=== PATIENT | female | born 1985 | race American Indian/Alaskan Native ===

== ENCOUNTER 2018-07-01 00:20 | Emergency (ER) | payer SELFPAY ==
[2018-07-01 00:42] VITALS: RESP 20
[2018-07-01 01:59] LABS: SQUAMOUS EPITHIAL < 1 /hpf (0-5); URINE BILIRUBIN NEGATIVE (NEGATIVE); URINE BLOOD NEGATIVE (NEGATIVE); URINE CLARITY Clear (Clear); URINE COLOR Yellow (YELLOW); URINE GLUCOSE (UA) NORMAL (Normal); URINE LEUKOCYTE ESTERASE NEG Leu/uL (Negative); URINE PROTEIN NEGATIVE (NEGATIVE); URINE UROBILINOGEN NORMAL mg/dL (0.2-1.0)
--- NOTE | 2018-07-01 02:51 | C.PDOC ---
History Of Present Illness 32 year old female presents to the ED for evaluation of irregular menses which has been ongoing since March 2018. Patient states her menses usually lasts two days, then reoccurs after three days. Patient started bleeding five days ago, but states her flow has been heavier than usual. She notes her bleeding has improved today, but would still like to be evaluated. Patient is also complaining of suprapubic abdominal discomfort. She denies fever, chills, back pain, dysuria. Time Seen by Provider: 07/01/18 01:16 Chief Complaint (Nursing): Female Genitourinary History Per: Patient History/Exam Limitations: no limitations Onset/Duration Of Symptoms: Days (5) Current Symptoms Are (Timing): Better Associated Symptoms: denies: Fever, Chills, Back Pain, Urinary Symptoms Additional History Per: Patient Abnormal Vaginal Bleeding: No Last Menstral Period: current Past Medical History Reviewed: Historical Data, Nursing Documentation, Vital Signs Vital Signs: Last Vital Signs Temp 97.7 F 07/01/18 00:38 Pulse 61 07/01/18 00:38 Resp 20 07/01/18 00:38 BP 112/65 07/01/18 00:38 Pulse Ox 100 07/01/18 00:38 - Medical History PMH: No Chronic Diseases Surgical History: No Surg Hx Family History: States: Unknown Family Hx - Social History Hx Tobacco Use: No Hx Alcohol Use: No Hx Substance Use: No - Immunization History Hx Tetanus Toxoid Vaccination: No Hx Influenza Vaccination: No Hx Pneumococcal Vaccination: No Review Of Systems Constitutional: Negative for: Fever, Chills Gastrointestinal: Positive for: Abdominal Pain Genitourinary: Positive for: Vaginal Bleeding. Negative for: Dysuria Physical Exam - Physical Exam Appears: Non-toxic, No Acute Distress Skin: Normal Color, Warm, Dry Head: Atraumatic, Normacephalic Eye(s): bilateral: Normal Inspection Oral Mucosa: Moist Neck: Supple Chest: Symmetrical, No Deformity, No Tenderness Cardiovascular: Rhythm Regular, No Murmur Respiratory: Normal Breath Sounds Gastrointestinal/Abdominal: Soft, No Tenderness, No Guarding, No Rebound Pelvic: No Vaginal Bleeding (active ), Vaginal Discharge (bloody, at the vaginal vault ), No Cervical Motion Tenderness, No Cervix Open Extremity: Normal ROM, Capillary Refill (less than 2 seconds ) Neurological/Psych: Oriented x3, Normal Speech, Normal Cognition ED Course And Treatment O2 Sat by Pulse Oximetry: 100 (on RA) Pulse Ox Interpretation: Normal Progress Note: Urinalysis ordered and reviewed. On reassessment, patient is resting comfortably, showing no signs of distress and is stable for discharge. Patient is advised to follow up with her OBGYN and PMD within 1-2 days for further evaluation. Advised to return to the ED if symptoms persist or worsen. 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 - Scribe Statement The provider has reviewed the documentation as recorded by the Scribe (Cyndi Watkins) All medical record entries made by the Scribe were at my direction and personally dictated by me. I have reviewed the chart and agree that the record accurately reflects my personal performance of the history, physical exam, medical decision making, and the department course for this patient. I have also personally directed, reviewed, and agree with the discharge instructions and disposition.
[2018-07-01 03:06] VITALS: BP 118/70; PULSE 81; TEMP 98
[2018-07-01 04:17] VITALS: O2SAT 100
== END 2018-07-01 03:06 | disposition home or self-care (01) ==
LOC: C.ER 00:20
DX: N92.6 Irregular menstruation, unspecified (principal)